=== PATIENT | female | born 1980 | race Caucasian/White ===

== ENCOUNTER 2017-05-06 21:45 | Emergency (ER) | payer SELFPAY ==
[2017-05-06] MEDS: NS 1,000 ML IV (22:30)
[2017-05-06 22:35] LABS: BASO % 0.2 % (0.0-1.0); EOS # 0.1 10^3/uL (0.0-0.50); EOS % 0.7 % (0.0-3.0); HEMATOCRIT 36.9 % (36.0-47.0); IMMATURE GRANULOCYTE % 0.3 % (0-0); LYMPH # 0.9 10^3/uL (1.5-4.5); LYMPH % 9.6 % (24.0-44.0); MEAN CORPUSCULAR HEMOGLOBIN 30.7 pg (27.0-33.0); MEAN CORPUSCULAR HGB CONC 35.2 g/dl (32.0-36.5); MEAN CORPUSCULAR VOLUME 87.2 fl (80.0-96.0); MONO # 0.5 10^3/uL (0.0-0.8); MONO % 4.8 % (0.0-5.0); NEUTROPHILS # 8.1 10^3/uL (1.8-7.7); NEUTROPHILS % 84.4 % (36.0-66.0); PLATELET COUNT, AUTOMATED 225 10^3/uL (150-450); RED BLOOD COUNT 4.23 10^6/uL (4.00-5.40); RED CELL DISTRIBUTION WIDTH 11.7 % (11.5-14.5); WHITE BLOOD COUNT 9.6 10^3/uL (4.0-10.0)
[2017-05-06 22:45] LABS: INR 1.05; PROTHROMBIN TIME 13.8 SECONDS (12.4-14.5)
[2017-05-06 22:46] LABS: PARTIAL THROMBOPLASTIN TIME 24.1 SECONDS (26.8-37.9)
[2017-05-06 23:19] LABS: ALBUMIN 3.7 GM/DL (3.2-5.2); ALBUMIN/GLOBULIN RATIO 1.28 (1.00-1.93); ALKALINE PHOSPHATASE 46 U/L (45-117); ALT/SGPT 15 U/L (12-78); ANION GAP 7 MEQ/L (8-16); AST/SGOT 13 U/L (7-37); BILIRUBIN,DIRECT 0.2 MG/DL (0.0-0.2); BILIRUBIN,TOTAL 0.5 MG/DL (0.2-1.0); BLOOD UREA NITROGEN 11 MG/DL (7-18); CALCIUM LEVEL 8.8 MG/DL (8.5-10.1); CARBON DIOXIDE LEVEL 28 MEQ/L (21-32); CHLORIDE LEVEL 99 MEQ/L (98-107); CREATININE FOR GFR 0.55 MG/DL (0.55-1.30); GLOMERULAR FILTRATION RATE > 60.0 (>60); GLUCOSE, FASTING 118 MG/DL (70-100); LIPASE 98 U/L (73-393); SODIUM LEVEL 134 MEQ/L (136-145); TOTAL PROTEIN 6.6 GM/DL (6.4-8.2)
== END 2017-05-07 01:34 | disposition home or self-care (01) ==
LOC: M ED 05-07 01:34
DX: O03.39 Incomplete spontaneous abortion with other complications (principal)
CPT/HCPCS: 76856

== ENCOUNTER 2018-06-06 13:37 | Inpatient (IN) | payer SELFPAY ==
[2018-06-06] VITALS (9 sets, daily range): BP systolic 113–142; BP diastolic 62–95
[~2018-06-06] VITALS: Ht 167.6 cm; Wt 80.7 kg
[2018-06-06 17:44] LABS: HEMATOCRIT 38.1 % (36.0-47.0); HEMOGLOBIN 13.1 g/dl (12.0-15.5); MEAN CORPUSCULAR HEMOGLOBIN 32.1 pg (27.0-33.0); MEAN CORPUSCULAR HGB CONC 34.4 g/dl (32.0-36.5); MEAN CORPUSCULAR VOLUME 93.4 fl (80.0-96.0); PLATELET COUNT, AUTOMATED 214 10^3/uL (150-450); RED BLOOD COUNT 4.08 10^6/uL (4.00-5.40); WHITE BLOOD COUNT 7.4 10^3/uL (4.0-10.0)
[2018-06-06] MEDS ORDERED: OXYTOCIN 30 UNITS IN 0.9% NaCl 500ML IV BAG (J2590) As Ordered ONE (18:57)
--- NOTE | 2018-06-06 19:39 | HPE ---
DATE OF ADMISSION: 06/06/2018 REASON FOR ADMISSION: Labor. HISTORY OF PRESENT ILLNESS: Mrs. Perez is a 37-year-old 15, para 8 who presents at 42 weeks by last menstrual period with complaints of labor. Her contractions started earlier today that increased with intensity and frequency. She reports active movement. Denies any vaginal bleeding or leakage of fluid. COURSE: She has had very limited care. She is of [place] descent. Initially planned to deliver at home, but her inspector balance bridge has since moved. She has had one visit in our office, confirmed cephalic presentation. Declined labs or any other evaluation. PAST MEDICAL HISTORY: None. PAST SURGICAL HISTORY: None. PAST OBSTETRICAL HISTORY: She has had a total of eight live births; she is proven to 9 pounds. She has had three stillbirths; she describes between 5 and 6 months. MEDICATIONS: Includes vitamins. ALLERGIES: She has no known drug allergies. SOCIAL HISTORY: Denies any alcohol, tobacco, or drug use during her . PHYSICAL EXAMINATION: Vital signs: Stable. She is afebrile. She has a category one heart rate tracing. Lungs: Clear to auscultation bilaterally. Cardiovascular: Heart regular rate and rhythm. She has a category one heart rate tracing with contractions on tocometer. Cervical exam: She was 5 cm dilated, 75% effaced, -3 station. ASSESSMENT: 1. Mrs. Perez is a 37-year-old 15, para 8, at 42 weeks gestation here in active labor. 2. Reassuring status. PLAN: Admit to labor and delivery, CBC, RPR, type and screen, hepatitis panel, hepatitis surface antigen, HIV. Anticipate spontaneous vaginal delivery.
--- NOTE | 2018-06-06 19:44 | DN ---
DATE OF PROCEDURE: 06/06/2018 TIME OF : 1856 hours. GENDER: Female. SCORES: 9 and 9. WEIGHT: 9 pounds 1 ounce or 4110 grams. LACERATIONS: None. ESTIMATED BLOOD LOSS: 300 mL. COUNTS: Vive laparotomy sponges accounted for prior to and after delivery. DELIVERY NOTE: On 06/06/2018 at 1856 hours, Mrs. Perez, a 37-year-old, 15, now para 9, had a spontaneous vaginal delivery of live born female , scores of 9 and 9, weight was 4110 or 9 pounds 1 ounce. Head was delivered occiput anterior (OA) over intact perineum followed by delivery of shoulders and corpus. Infant was handed to mom with a good cry. Cord was clamped times two and was cut by the father of the baby under my direction. Placenta was then drained and delivered grossly intact. A premixed bag of 500 mL of normal saline along with 30 units of Pitocin was bolused along with uterine massage until the uterus was firm. On inspection, no lacerations. Cervix, vagina, and perineum was grossly intact and hemostatic. Mom and baby recovering in stable condition.
[2018-06-06] MEDS ORDERED: OXYTOCIN DRIP 30 UNITS in APPROPRIATE DILUENT 1 EA IV SCH (19:47)
[2018-06-06] MEDS ORDERED: METHYLERGONOVINE MALEATE 0.2 MG TAB PO PRN (20:00)
[2018-06-06] MEDS ORDERED: ANUSOL HC CREAM 30GM TOP PRN (20:00)
[2018-06-06] MEDS ORDERED: MEASLES,MUMPS,RUBELLA VACCINE INJ (MMR-II) (90707) SC SCH (20:00)
[2018-06-06] MEDS ORDERED: ACETAMINOPHEN 500 MG TAB PO PRN (20:00)
[2018-06-06] MEDS ORDERED: MOM 30ML SUSPENSION UDC PO PRN (20:00)
[2018-06-06] MEDS ORDERED: IBUPROFEN 800 MG TAB PO PRN (20:00)
[2018-06-06] MEDS ORDERED: RHOGAM 300 MCG (1500 IU) INJ (J2790) IM SCH (20:00)
[2018-06-06] MEDS ORDERED: DIBUCAINE 1% OINTMENT 30GM TOP PRN (20:00)
[2018-06-06] MEDS ORDERED: DOCUSATE SODIUM 100 MG CAP PO PRN (20:00)
[2018-06-07 06:00] VITALS: BP 130/70
[2018-06-07] MEDS ORDERED: PRENATAL VITAMINS CHEWABLE TABLET PO SCH (09:00)
[2018-06-07] MEDS ORDERED: COLA100C5 PO (13:20)
[2018-06-07] MEDS ORDERED: IBUP-1114 PO (13:20)
[2018-06-07] MEDS ORDERED: MAPA500T2 PO (13:20)
[2018-06-07] MEDS ORDERED: MOM30SS PO (13:21)
[2018-06-07 18:00] VITALS: BP 125/58
== END 2018-06-07 21:15 | disposition home or self-care (01) | DRG 560 ==
LOC: M LDO 13:37 → M LDI 15:54 → M OBS 21:00
PROVIDERS: ADMIT Obstetrics & Gynecology; ATTEND Obstetrics & Gynecology
PROC: 10E0XZZ Delivery of Products of Conception, External Approach (ICD-10-PCS; principal; 2018-06-06)
DX: O48.0 Post-term pregnancy (principal); O09.31 Supervision of pregnancy with insufficient antenatal care, first trimester; Z37.0 Single live birth; Z3A.42 42 weeks gestation of pregnancy; O09.32 Supervision of pregnancy with insufficient antenatal care, second trimester; O09.33 Supervision of pregnancy with insufficient antenatal care, third trimester

== ENCOUNTER 2022-08-16 15:42 | Outpatient (CLI) | payer SELFPAY ==
[~2022-08-16] VITALS: Ht 167.6 cm; Wt 85.2 kg
[~2022-08-16 15:42] MED LIST: COLA100C5 PO; IBUP-1114 PO; MAPA500T2 PO; MOM30SS PO
[2022-08-16 16:02] VITALS: BP 134/63
[2022-08-16] MEDS ORDERED: PREN1CHW PO (16:09)
[2022-08-16] MEDS ORDERED: HOME MED LIST COMPLETE! XX SCH (16:10)
[2022-08-16 17:51] VITALS: BP 131/62
== END 2022-08-16 20:16 | disposition home or self-care (01) ==
LOC: M LDO 15:42
PROVIDERS: ATTEND Advanced Practice Midwife
DX: O36.4XX9 Maternal care for intrauterine death, other fetus (principal); O72.1 Other immediate postpartum hemorrhage; O09.522 Supervision of elderly multigravida, second trimester; Z3A.27 27 weeks gestation of pregnancy
CPT/HCPCS: 76811; G0463